=== PATIENT | male | born 1960 | race Caucasian/White ===

== ENCOUNTER → 2019-08-18 | Outpatient (CLI) | payer BC ==
[~2019-08-18] MED LIST: DIPH25CA61 PO; LOSA100T14 PO; METF500T17 PO; OXYC-432 PO
[2019-08-18 10:51] LABS: ALANINE AMINOTRANSFERASE 53 U/L (12-78); ALBUMIN 3.8 g/dL (3.4-5.0); ANION GAP 5 mmol/L (5-15); CALCIUM 9.5 mg/dL (8.5-10.1); CHLORIDE 103 mmol/L (98-107)
[2019-08-18 11:05] LABS: ALKALINE PHOSPHATASE 65 U/L (45-117); BILIRUBIN,TOTAL 0.7 mg/dL (0.2-1.0); CREATININE 1.25 mg/dL (0.7-1.3); TOTAL PROTEIN 7.6 g/dL (6.4-8.2)
== END | disposition home or self-care (01) ==
LOC: STAR 09:07
PROVIDERS: ATTEND Orthopaedic Surgery
DX: Z01.818 Encounter for other preprocedural examination (principal); M75.121 Complete rotator cuff tear or rupture of right shoulder, not specified as traumatic; M75.21 Bicipital tendinitis, right shoulder
CPT/HCPCS: 36415; 80053

== ENCOUNTER 2019-08-27 07:00 | Day surgery (SDC) | payer BC ==
[~2019-08-27] VITALS: Ht 180.3 cm; Wt 110.0 kg
[2019-08-27 07:14] VITALS: BP 140/95
[2019-08-27] MEDS ORDERED: LACTATED RINGERS 1,000 ML IV SCH (07:19)
[2019-08-27] MEDS ORDERED: BUPIVACAINE/PF-EPI 0.5% 1:200K ONE (07:20)
[2019-08-27] MEDS ORDERED: CHLORHEXIDINE 15 ML UDC MM STA (07:20)
[2019-08-27] MEDS ORDERED: LIDOCAINE/PF 1.5%-EPI 1:200K, 30ML ONE (07:20)
[2019-08-27] MEDS ORDERED: CHLORHEXIDINE 15 ML UDC ONE (07:25)
[2019-08-27] MEDS ORDERED: MIDAZOLAM 1 MG/ML, 2ML ONE (07:42)
[2019-08-27] MEDS ORDERED: FENTANYL PF 250 MCG/5ML ONE (07:43)
[2019-08-27] MEDS ORDERED: hydrALAzine 20 MG/ML, 1ML IV PRN (08:00)
[2019-08-27] MEDS ORDERED: ACETAMINOPHEN 325 MG TABLET PO PRN (08:00)
[2019-08-27] MEDS ORDERED: MEPERIDINE/PF 25MG/0.5ML IVPush PRN (08:00)
[2019-08-27] MEDS ORDERED: OXYcodone 5 MG/5 ML ORAL.SOL UDC PO PRN (08:00)
[2019-08-27] MEDS ORDERED: KETOROLAC 30 MG/1 ML IV PRN (08:00)
[2019-08-27] MEDS ORDERED: ALBUTEROL SULFATE 2.5 MG/3 ML NPPB PRN (08:00)
[2019-08-27] MEDS ORDERED: PROMETHAZINE 25 MG/ML, 1ML IV PRN (08:00)
[2019-08-27] MEDS ORDERED: HYDROmorphone 2 MG/ML, 1ML IVPush PRN (08:00)
[2019-08-27] MEDS ORDERED: FENTANYL PF 100 MCG/2ML IV PRN (08:00)
[2019-08-27] MEDS ORDERED: DIAZEPAM 5 MG/ML, 2ML IVPush PRN (08:00)
[2019-08-27] MEDS ORDERED: LABETALOL 5MG/ML, 20ML IV PRN (08:00)
[2019-08-27] MEDS ORDERED: PROPOFOL 10 MG/ML, 20ML ONE (12:48)
[2019-08-27] MEDS ORDERED: ROCURONIUM 10MG/ML,5ML ONE (12:48)
[2019-08-27] MEDS ORDERED: NEOSTIGMINE 1 MG/ML, 10ML ONE (12:48)
[2019-08-27] MEDS ORDERED: ONDANSETRON 2MG/ML, 2ML ONE (12:48)
[2019-08-27] MEDS ORDERED: DEXAMETHASONE 4 MG/ML, 1ML ONE (12:48)
[2019-08-27] MEDS ORDERED: GLYCOPYRROLATE 0.2MG/1ML, 5ML ONE (12:48)
[2019-08-27] MEDS ORDERED: CEFAZOLIN 1,000 MG ONE (12:48)
[2019-08-27] MEDS ORDERED: SUCCINYLCHOLINE 20 MG/ML, 10ML ONE (12:48)
== END 2019-08-27 12:40 | disposition home or self-care (01) ==
LOC: OUT 07:00
PROVIDERS: ATTEND Orthopaedic Surgery
DX: M75.121 Complete rotator cuff tear or rupture of right shoulder, not specified as traumatic (principal); S46.111A Strain of muscle, fascia and tendon of long head of biceps, right arm, initial encounter; S43.431A Superior glenoid labrum lesion of right shoulder, initial encounter; M75.21 Bicipital tendinitis, right shoulder; M65.811 Other synovitis and tenosynovitis, right shoulder; M75.51 Bursitis of right shoulder; M75.41 Impingement syndrome of right shoulder; M19.011 Primary osteoarthritis, right shoulder; M22.41 Chondromalacia patellae, right knee; I10 Essential (primary) hypertension; J45.909 Unspecified asthma, uncomplicated; E66.9 Obesity, unspecified; Z79.84 Long term (current) use of oral hypoglycemic drugs; Z79.891 Long term (current) use of opiate analgesic; Z79.899 Other long term (current) drug therapy; Z82.61 Family history of arthritis; X50.1XXA Overexertion from prolonged static or awkward postures, initial encounter; Y93.89 Activity, other specified; Y92.89 Other specified places as the place of occurrence of the external cause; Y99.8 Other external cause status
CPT/HCPCS: 29823; 29824; 29826; 29827; 29828; 64415; C1713; J0330; J0690; J1100; J2250; J2405; J2704; J3010; J7120; J2710